=== PATIENT | female | born 1980 | race Caucasian/White ===

== ENCOUNTER → 2025-07-29 | Emergency (ER) | payer MEDICAID, OTHER ==
[~2025-07-29] VITALS: Ht 162.6 cm; Wt 74.8 kg
[2025-07-29 21:00] VITALS: BP 148/89; TEMP 36.8; O2SAT 99
[2025-07-29 21:01] VITALS: PULSE 107; RESP 18; O2SAT 100
== END ==
LOC: ER 22:43
DX: M25.561 Pain in right knee (principal)
CPT/HCPCS: 99281